=== PATIENT | female | born 1995 | race Caucasian/White ===

== ENCOUNTER 2016-10-31 01:30 | Emergency (ER) | payer OTHER ==
[2016-10-31 01:36] VITALS: RESP 16
[2016-10-31 02:39] LABS: COLOR YELLOW; LEUKOCYTE ESTERASE,URINE NEGATIVE (NEGATIVE); NITRITE,URINE NEGATIVE (NEGATIVE)
[2016-10-31 02:43] LABS: MUCUS TRACE /lpf (NONE-1+)
[2016-10-31 02:51] LABS: RBC,URINE NONE SEEN /hpf (0-3)
--- NOTE | 2016-10-31 03:15 | EDPHY ---
H & P Stated Complaint: suprapubic pain vs possible dislodged IUD, denies bleeding Time Seen by Provider: 10/31/16 02:03 HPI/ROS: HPI The patient presents with lower abdominal pain which began about 1 hour ago while having penetrated of sexual intercourse with her male partner. The pain started suddenly, which crampy in nature, did not radiate. She took a dose of ibuprofen which did improve her symptoms. She has not had any vaginal bleeding , vaginal discharge, fevers or chills, nausea or vomiting. She has no prior history of sexually transmitted infection. She has an IUD in place and is unsure of her last menstrual period. REVIEW OF SYSTEMS Constitutional: No fever, no chills. Eyes: No discharge. ENT: No sore throat. Cardiovascular: No chest pain, no palpitations. Respiratory: No cough, no shortness of breath. Gastrointestinal: Positive for abdominal pain, no vomiting. Genitourinary: No hematuria. Musculoskeletal: No back pain. Skin: No rashes. Neurological: No headache. PMHx: Healthy Soc Hx: Housed PHYSICAL General Appearance: Alert, no distress Eyes: Pupils equal and round no pallor or injection ENT, Mouth: Mucous membranes moist Respiratory: There are no retractions, lungs are clear to auscultation Cardiovascular: Regular rate and rhythm Gastrointestinal: Abdomen is soft and non-tender, mild tenderness in the mid lower abdomen without any rebound or guarding. Neurological: A&O, moves all extremities Skin: Warm and dry, no rashes Musculoskeletal: Neck is supple non tender Extremities: symmetrical, full range of motion Psychiatric: Patient is oriented X 3, there is no agitation Source: Patient Exam Limitations: No limitations - Personal History LMP (Females 10-55): IUD [address] Place Current Tetanus/Diphtheria Vaccine: Yes - Medical/Surgical History Hx Asthma: No Hx Chronic Respiratory Disease: No Hx Diabetes: No Hx Cardiac Disease: No Hx Renal Disease: No Hx Cirrhosis: No Hx Alcoholism: No Hx HIV/AIDS: No Hx Splenectomy or Spleen Trauma: No Other PMH: Denies - Social History Smoking Status: Current some day smoker Constitutional: Initial Vital Signs Temperature (C) 36.9 C 10/31/16 01:32 Heart Rate 61 10/31/16 01:32 Respiratory Rate 16 10/31/16 01:32 Blood Pressure 90/51 L 10/31/16 01:32 O2 Sat (%) 99 10/31/16 01:32 O2 Delivery Mode Room Air Allergies/Adverse Reactions: Penicillins Allergy (Verified 10/31/16 01:36) Home Medications: Medication Instructions Recorded Amphet Asp and D/Amphet [Adderall 20 mg PO 10/31/16 20 mg (*)] Medical Decision Making - Diagnostics Imaging Results: Pelvic ultrasound is unremarkable, discussed with Dr. Wilhelm of Radiology. Imaging: Discussed imaging studies w/ bilingual call center representative Radiologist Differential Diagnosis: This is a 21-year-old female who presents with 1 hour of lower abdominal crampy abdominal pain. Differential diagnosis includes ruptured ovarian cysts, dislodged IUD, ovarian torsion, UTI. In the emergency department, the patient had an ultrasound performed which was unremarkable. Her pain did not recur. Reassessment demonstrated benign abdominal exam. She will be discharged home the cause of her symptoms is unclear. Because of this I have advised her to have a low threshold to return to the emergency room for further evaluation if her pain returns. - Data Points Laboratory Results: 10/31/16 01:40 Urine Color YELLOW Urine Appearance CLEAR Urine pH 6.0 (5.0-7.5) Ur Specific [place] 1.015 (1.002-1.030) Urine Protein NEGATIVE (NEGATIVE) Urine Ketones NEGATIVE (NEGATIVE) Urine Blood NEGATIVE (NEGATIVE) Urine Nitrate NEGATIVE (NEGATIVE) Urine Bilirubin NEGATIVE (NEGATIVE) Urine Urobilinogen NEGATIVE EU EU (0.2-1.0) Ur Leukocyte Esterase NEGATIVE (NEGATIVE) Urine RBC NONE SEEN /hpf /hpf (0-3) Urine WBC 3-5 /hpf H /hpf (0-3) Ur Epithelial Cells NONE SEEN /lpf /lpf (NONE-1+) Urine Mucus TRACE /lpf /lpf (NONE-1+) Urine Glucose NEGATIVE (NEGATIVE) Departure - Departure Disposition: Home, Routine, Self-Care Clinical Impression: Lower abdominal pain Condition: Good Instructions: Acute Abdominal Pain (ED) Additional Instructions: Please return to the emergency room if your worse in any way. Otherwise, you can take ibuprofen as needed for your pain. Referrals: Jonelle Cary MD [Medical Doctor] - As per Instructions
[2016-10-31 04:00] VITALS: BP 102/50; PULSE 78; TEMP 98.6; O2SAT 97
== END 2016-10-31 04:02 | disposition home or self-care (01) ==
DX: R10.30 Lower abdominal pain, unspecified (principal); F17.200 Nicotine dependence, unspecified, uncomplicated

== ENCOUNTER 2018-03-09 15:15 | Emergency (ER) | payer OTHER ==
[2018-03-09 15:25] VITALS: BP 100/59
== END 2018-03-09 15:55 | disposition left against medical advice (07) ==
DX: Z53.21 Procedure and treatment not carried out due to patient leaving prior to being seen by health care provider (principal)